=== PATIENT | female | born 1950 | race Caucasian/White ===

== ENCOUNTER 2017-04-17 13:16 | Emergency (ER) | payer MEDICARE ==
[2017-04-17 13:51] LABS: BASOPHIL 0.1 % (0-2); EOSINOPHIL 0.1 % (0-7); HCT 41.4 % (37.0-47.0); HGB 13.7 g/dl (12.5-16.0); LYMPHOCYTE 9.3 % (15-48); MCH 29.7 pg (25.0-31.0); MCHC 33.1 g/dL (32.0-36.0); MCV 89.6 fL (78.0-100.0); MONOCYTE 3.8 % (0-12); MPV 10.2 fL (6.0-9.5); NEUTROPHIL 86.7 % (41-80); PLT 321 K/uL (150-400); RBC 4.62 M/uL (4.20-5.40); WBC 15.2 K/uL (4.0-10.5)
[2017-04-17 14:04] LABS: INR 0.98 (0.9-1.2); PROTHROMBIN TIME 12.6 SECONDS (11.7-14.0); PTT 25.1 SECONDS (23.2-31.4)
[2017-04-17 14:05] LABS: D-DIMER < 0.27 ug/mLFEU (0.00-0.41)
[2017-04-17 14:10] LABS: ALBUMIN 3.7 g/dL (3.4-4.8); BILIRUBIN - TOTAL 0.3 mg/dL (0.1-1.0); CREATININE 0.9 mg/dL (0.5-1.0); GLOBULIN (CALCULATION) 3.4 g/dL (2.2-4.2); MAGNESIUM 2.08 mg/dL (1.40-2.10); POTASSIUM 4.5 mmol/L (3.5-5.1); TOTAL PROTEIN 7.1 g/dL (6.4-8.3)
[2017-04-17 14:22] LABS: MYOGLOBIN 21 ng/mL (26-65); PRO-BNP 49 pg/mL (0-125); TROPONIN T < 0.010 ng/mL
== END 2017-04-17 18:22 | disposition home or self-care (01) ==
LOC: FER 13:16
PROVIDERS: Emergency Medicine
DX: R07.89 Other chest pain (principal); R11.0 Nausea; I10 Essential (primary) hypertension; E78.5 Hyperlipidemia, unspecified; Z79.82 Long term (current) use of aspirin; Z79.899 Other long term (current) drug therapy; Z95.5 Presence of coronary angioplasty implant and graft
CPT/HCPCS: 36415; 71010; 80053; 82550; 82553; 83735; 83874; 83880; 84484; 85025; 85379; 85610; 85730; 93005